=== PATIENT | male | born 1995 | race Caucasian/White ===

== ENCOUNTER 2024-07-28 00:25 | Emergency (ER) | payer OTHER, SELFPAY ==
[2024-07-28] VITALS (12 sets, daily range): BP systolic 90–152; BP diastolic 52–91
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
[2024-07-28] MEDS: ATIVAN 2 MG IM (00:46)
[2024-07-28] MEDS: HALDOL 5 MG IM (00:47)
[2024-07-28] MEDS: NSS 1000 IV ×3 (01:28→20:35)
[2024-07-28 01:39] LABS: % Basophils 0.5 % (0-2); % Eosinophils 0.1 % (0-6); % Immature Granulocytes 0.8 % (0-0.5); % Lymphocytes 5.4 % (20.5-51.1); % Neutrophils 88.2 % (42.2-75.2); Absolute Basophils 0.1 10^3/uL (0-0.2); Absolute Immature Granulocytes 0.2 10^3/uL (0-0.05); Absolute Neutrophils 17.1 10^3/uL (1.4-6.5); Hematocrit 41.1 % (39.0-52.0); Hemoglobin 14.9 g/dL (13.0-18.0); Mean Corp Hgb Conc. 36.3 g/dL (33.0-37.0); Mean Corpuscular Hgb 30.9 pg (27.0-31.0); Mean Corpuscular Volume 85.3 fL (80.0-94.0); Mean Platelet Volume 12.2 fL (7.4-10.4); Nucleated Red Blood Cells % 0 % (-); Platelet Count 254 10^3/uL (130-400); Red Blood Cell Count 4.82 10^6/uL (4.70-6.10); Red Cell Dist. Width 12.6 % (11.5-14.5); White Blood Cell Count 19.4 10^3/uL (4.8-10.8)
[2024-07-28 01:43] LABS: ALT (SGPT) 59 U/L (0-50); AST (SGOT) 82 U/L (17-59); Albumin 5.1 g/dl (3.5-5.0); Alkaline Phosphatase 94 U/L (38-126); Blood Urea Nitrogen 17 mg/dl (9-20); Calcium 10.2 mg/dl (8.4-10.2); Carbon Dioxide 17 mmol/L (22-30); Chloride 104 mmol/L (98-107); Glucose 95 mg/dl (70-99); Potassium 3.2 mmol/L (3.5-5.1); Sodium 145 mmol/L (135-145); Total Bilirubin 1.4 mg/dl (0.2-1.3); Total Protein 8.2 g/dl (6.3-8.2); eGFR > 60.00
[2024-07-28 03:33] LABS: Creatine Phosphokinase 1594 U/L (55-170)
--- NOTE | 2024-07-28 07:51 | ED.CRISIS ---
ED Crisis Note
ED Crisis Note
Subjective:
28-year-old male presenting with delusional behavior, presented earlier this morning running naked. Patient had delusional behavior about a bomb in his backpack. Patient subsequently sent to the emergency department. Patient with nonsensical
speech, quickly chemically sedated.
Objective:
Status post chemical sedation with Ativan and Haldol.
General: Resting/sleeping comfortably
HEENT: protecting airway
Neck: appears supple
CV: Normal heart rate
Resp: No accessory muscle use, no increased work of breathing
Abd: No distention
Extremities: No deformities, no swelling
Neuro: No focal neurologic deficits
: deferred
Rectal: deferred
Skin: Intact
Assessment/Plan:
28-year-old male presenting with delusional behavior. Vital sign initially significant for tachycardia, which has since resolved.
Patient sleeping comfortably after chemical sedation. Patient under 302 for failure to care for self, pending placement to psychiatric facility. Hemodynamically stable at this time.
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
[2024-07-28 15:10] LABS: Urine Albumin Trace (Neg - Trace); Urine Bilirubin 1+ (Negative); Urine Character Slightly Cloudy (Clear); Urine Color Yellow; Urine Glucose Negative (Negative); Urine Ketone 3+ (Negative); Urine Leukocyte Negative (Negative); Urine Nitrite Negative (Negative); Urine Occult Blood Negative (Negative); Urine Specific Gravity 1.025 (<1.030); Urine Urobilinogen Negative (Neg - 1+)
[2024-07-28 15:25] LABS: Amphetamines Positive (Negative); Benzodiazepines Positive (Negative); Methamphetamines Positive (Negative)
[2024-07-28 15:26] LABS: Barbiturates Negative (Negative); Buprenorphine Negative (Negative); Cocaine Negative (Negative); Marijuana Negative (Negative); Methadone Negative (Negative); Opiates Negative (Negative); Phencyclidine Negative (Negative); Tricyclic Antidepressants Negative (Negative)
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
[2024-07-28 15:46] LABS: Fentanyl, Urine Negative (Negative)
[2024-07-28 16:35] LABS: Blood Urea Nitrogen 14 mg/dl (9-20); Calcium 8.6 mg/dl (8.4-10.2); Carbon Dioxide 26 mmol/L (22-30); Chloride 101 mmol/L (98-107); Glucose 85 mg/dl (70-99); Potassium 3.7 mmol/L (3.5-5.1); Sodium 138 mmol/L (135-145); eGFR > 60.00
[2024-07-28 16:37] LABS: % Basophils 0.6 % (0-2); % Eosinophils 1.2 % (0-6); % Immature Granulocytes 0.4 % (0-0.5); % Lymphocytes 14.2 % (20.5-51.1); % Monocytes 8.7 % (1.7-9.3); % Neutrophils 74.9 % (42.2-75.2); Absolute Basophils 0.1 10^3/uL (0-0.2); Absolute Eosinophils 0.1 10^3/uL (0-0.7); Absolute Lymphocytes 1.6 10^3/uL (1.2-3.4); Absolute Neutrophils 8.2 10^3/uL (1.4-6.5); Hematocrit 38.4 % (39.0-52.0); Hemoglobin 13.4 g/dL (13.0-18.0); Mean Corp Hgb Conc. 34.9 g/dL (33.0-37.0); Mean Corpuscular Hgb 32.1 pg (27.0-31.0); Mean Corpuscular Volume 92.1 fL (80.0-94.0); Mean Platelet Volume 11.9 fL (7.4-10.4); Nucleated Red Blood Cells % 0 % (-); Platelet Count 203 10^3/uL (130-400); Red Blood Cell Count 4.17 10^6/uL (4.70-6.10); Red Cell Dist. Width 13.1 % (11.5-14.5)
[2024-07-28 16:54] LABS: Creatine Phosphokinase 3520 U/L (55-170)
[2024-07-28 21:04] LABS: Blood Urea Nitrogen 14 mg/dl (9-20); Calcium 8.4 mg/dl (8.4-10.2); Carbon Dioxide 26 mmol/L (22-30); Chloride 101 mmol/L (98-107); Glucose 106 mg/dl (70-99); Potassium 3.4 mmol/L (3.5-5.1); Sodium 137 mmol/L (135-145); eGFR > 60.00
[2024-07-29 08:20] VITALS: BP 107/64
[2024-07-29 08:36] LABS: Creatine Phosphokinase 1594 U/L (55-170)
--- NOTE | 2024-07-29 08:43 | ED.CRISIS ---
ED Crisis Note
ED Crisis Note
Subjective:
No complaints reported
Objective:
Pt noted to be sleeping overnight, without any acute event.
Assessment/Plan:
28-year-old male presenting with delusional behavior. Vital sign initially significant for tachycardia, which has since resolved.
Patient sleeping comfortably after chemical sedation. Pt evaluated by (psychiatry), awaiting re-evaluation this AM.
CPK trending down. Prolonged QTc resolved after treatment, confirmed via repeat EKG.
Repeat EKG: NSR @ 77 bpm.
Pt evaluated by again ED - feels that patient can be discharged home at this time, without any further intervention
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
--- NOTE | 2024-07-29 13:49 | CM ---
CM met with patient in room. Patient requesting Lyft ride assistance to [facility]. CM confirmed that he has a PFA against his filed by his family. Missy was requesting ride to patient's parents. CM declined and asked for alternative
locations. Patient stated he would visit a friend close to the [place].
CM updated bedside RN.
== END 2024-07-29 14:23 | disposition home or self-care (01) ==
LOC: EMR 00:25
PROVIDERS: Clinical Nurse Specialist Family Health; Emergency Medicine; CONSULT PHYSICIAN Psychiatry & Neurology Psychiatry; EMERGENCY PHYSICIAN Student in an Organized Health Care Education/Training Program
DX: F22 Delusional disorders (principal); E87.6 Hypokalemia; R79.89 Other specified abnormal findings of blood chemistry
CPT/HCPCS: 96360; 96361; 96372; 99285; 73660; 80048; 80053; 80306; 80307; 81003; 82550; 85025; 93005